=== PATIENT | female | born 1980 | race Caucasian/White ===

== ENCOUNTER → 2020-04-01 14:41 | Outpatient (BNVA) | payer MEDICARE, SELFPAY | PROVIDERS: Visit Provider Psychiatry & Neurology Psychiatry | DX: F33.1 Major depressive disorder, recurrent, moderate (principal); F60.3 Borderline personality disorder; F79 Unspecified intellectual disabilities | CPT/HCPCS: 99204 ==

== ENCOUNTER → 2020-05-03 08:59 | Outpatient (BNVA) | payer MEDICARE, SELFPAY | PROVIDERS: Visit Provider Psychiatry & Neurology Psychiatry | DX: F33.1 Major depressive disorder, recurrent, moderate (principal); F79 Unspecified intellectual disabilities; F60.3 Borderline personality disorder | CPT/HCPCS: 99213 ==

== ENCOUNTER → 2020-07-26 09:10 | Outpatient (BNVA) | payer MEDICARE, SELFPAY | PROVIDERS: Visit Provider Psychiatry & Neurology Psychiatry | DX: F33.1 Major depressive disorder, recurrent, moderate (principal); F79 Unspecified intellectual disabilities; F60.3 Borderline personality disorder | CPT/HCPCS: 99213 ==

== ENCOUNTER → 2020-08-22 09:23 | Outpatient (BNVA) | payer MEDICARE, SELFPAY | PROVIDERS: Visit Provider Family Medicine | DX: Z13.6 Encounter for screening for cardiovascular disorders (principal); L30.4 Erythema intertrigo; E66.01 Morbid (severe) obesity due to excess calories; E03.9 Hypothyroidism, unspecified; K43.0 Incisional hernia with obstruction, without gangrene | CPT/HCPCS: 85025 ==

== ENCOUNTER 2020-08-29 07:55 | Outpatient (CLI) | payer MEDICARE, SELFPAY ==
[2020-08-29 07:13] LABS: Basophils % 0.5 %; Eosinophils # 0.1 10^3/uL (0.0-0.8); Hematocrit 45.6 % (37.0-47.0); Hemoglobin 14.8 g/dL (11.5-15.3); Lymphocytes # 1.9 10^3/uL (0.8-4.8); Lymphocytes % 30.9 %; Mean Corpuscular HGB Conc 32.5 g/dL (30.0-36.0); Mean Corpuscular Hemoglobin 29.3 pg (28.0-34.0); Mean Corpuscular Volume 90.3 fL (81-99); Mean Platelet Volume 9.8 fL (7.4-10.4); Monocytes # 0.5 10^3/uL (0.2-0.9); Monocytes % 8.8 %; Neutrophils # 3.53 10^3/uL (1.8-7.7); Neutrophils % 57.5 %; Nucleated Red Blood Cells % 0 %; Platelet Count 285 10^3/cmm (130-400); Red Blood Count 5.05 10^6/uL (4.1-5.3); Red Cell Distribution Width 12.2 % (12.1-15.1); White Blood Count 6.1 10^3/uL (4.0-10.0)
[2020-08-29 07:33] LABS: Alanine Aminotransferase 12 U/L (0-33); Albumin Level 4.2 g/dL (3.5-5.2); Alkaline Phosphatase 63 IU/L (35-105); Anion Gap 13.3 (5-19); Aspartate Amino Transferase 11 U/L (0-32); Blood Urea Nitrogen 9 mg/dL (6-20); Calcium 8.6 mg/dL (8.5-10.5); Carbon Dioxide 26 mmol/L (22-29); Chloride 102 mmol/L (98-107); Chol HDL Ratio 3.57 mg/dL (0.0-4.40); Cholesterol 200 mg/dL (0-200); Free T4 Free Thyroxine 1.19 ng/dL (0.82-1.77); Globulin 2.8 g/dL (1.3-4.6); Glomerular Filtration Rate 247.7 mL/min (90-130); Glucose 99 mg/dL (65-115); HDL Cholesterol 56 mg/dL (60-100); LDL Cholesterol Calculated 128 mg/dL (50-129); LDL HDL Ratio 2.29 RATIO (0.00-3.22); Osmolality Calculated 283 mOsm/kg (285-295); Potassium 4.3 mmol/L (3.5-5.1); Sodium 137 mmol/L (136-145); Thyroid Stimulating Hormone 3.41 uIU/mL (0.27-4.20); Total Bilirubin 0.3 mg/dL (0.15-1.2); Triglycerides 81 mg/dL (0-150)
[2020-08-29 08:20] LABS: 25 Hydroxy Vitamin D 26 ng/mL (30-100)
== END 2020-08-29 07:56 | disposition home or self-care (01) ==
LOC: LAB 09-10 07:55
PROVIDERS: Visit Provider Family Medicine
DX: Z13.6 Encounter for screening for cardiovascular disorders (principal); E66.01 Morbid (severe) obesity due to excess calories; E03.9 Hypothyroidism, unspecified; Z68.42 Body mass index [BMI] 45.0-49.9, adult
CPT/HCPCS: 36415; 80053; 80061; 82306; 84439; 84443; 85025

== ENCOUNTER → 2020-09-18 13:46 | Outpatient (BNVA) | payer MEDICARE, SELFPAY | PROVIDERS: Visit Provider Obstetrics & Gynecology | DX: Z12.4 Encounter for screening for malignant neoplasm of cervix (principal) | CPT/HCPCS: 88175 ==

== ENCOUNTER → 2020-09-25 15:04 | Outpatient (BNVA) | payer MEDICARE, SELFPAY | PROVIDERS: Visit Provider Obstetrics & Gynecology | DX: Z01.419 Encounter for gynecological examination (general) (routine) without abnormal findings (principal) | CPT/HCPCS: 76830 ==

== ENCOUNTER → 2020-10-18 12:30 | Outpatient (BNVA) | payer MEDICARE, SELFPAY | PROVIDERS: Visit Provider Psychiatry & Neurology Psychiatry | DX: F33.1 Major depressive disorder, recurrent, moderate (principal); F79 Unspecified intellectual disabilities; F60.3 Borderline personality disorder | CPT/HCPCS: 99213 ==

== ENCOUNTER 2021-01-03 14:34 | Emergency (ER) | payer MEDICARE, SELFPAY ==
[2021-01-03 15:24] VITALS: BP 134/98; PULSE 66; RESP 17; TEMP 37.2; O2SAT 100
--- NOTE | 2021-01-03 15:47 | ED_ITS ---
HPI - Extremity Problem General: Chief complaint: Extremity Injury, Upper Stated complaint: LEFT HAND INJURY Time Seen by Provider: 01/03/21 15:47 History of Present Illness: HPI Narrative: Ms. Rosa is a 40-year-old lady with significant past medical history of Arthrogryposis multiplex congenita who presents to the emergency department due to laceration. She was using a razor blade to help remove caulking from a tub when it slipped and cut her left hand o n the anatomic medial aspect. There was immediately venous bleeding but no pulsatile arterial bleeding. She immediately had pain. She scrubbed the area and cleaned it with hydrogen peroxide and upon arrival the wound is largely hemostatic. The patient expresses concern that her fingers have changed color and she has mild tingling. Otherwise she has been at baseline health. Pain is mild to moderate and stinging/throbbing in nature. Her symptoms are mildly worse with palpation but do not go with rest. No other specific exacerbating or alleviating factors identified. Review of Systems General: Reports: 10 or more systems reviewed and unremarkable except in HPI and below Narrative: CONSTITUTIONAL: denies fever, fatigue, weakness EYES - denies pain, denies loss of vision EARS - denies ear issues. NOSE - denies congestion or rhinorrhea. THROAT - denies sore throat or difficulty swallowing. CARDIOVASCULAR - denies chest pain and palpitations RESPIRATORY - denies shortness of breath and cough GASTROINTESTINAL - denies abdominal pain, no nausea vomiting, no changes in bowel habits GENITOURINARY - denies dysuria or urinary frequency MUSCULOSKELETAL- denies deformity or pain SKIN -laceration and other reported findings as noted in HPI. NEUROLOGIC - denies focal weakness or sensory changes HEMATOLOGIC/LYMPHATIC - denies easy bruising or lymphadenopathy. [facility] ED PFSH: Medical History Arthrogryposis multiplex congenita Bipolar disorder Recent surgical procedure on lower extremity Surgical History History of cholecystectomy 2015 Family History Other Diabetes Hypertension Psychiatric illness Thyroid condition Social History Smoking and tobacco status: never smoked Second hand smoke exposure: No Alcohol intake: never Current gender identity: Female Physical Exam Narrative: EXAM NARRATIVE: GENERAL/CONSTITUTIONAL - well-appearing. No acute distress. Eyes - PERRL, no conjunctival injection ENMT - Atraumatic external nose and ears. Moist mucous membranes NECK - supple. trachea midline CARDIOVASCULAR - regular rate and rhythm. Left radial and ulnar artery palpable, 2+. RESPIRATORY -clear to auscultation bilaterally. No retractions or accessory muscle use. ABDOMEN/GI - Nontender/Nondistended. No tenderness to percussion or evidence of peritonitis MSK - Extremities without obvious deformity or tenderness to palpation Left hand? laceration to medial left hand with bleeding controlled. fingers are discolored however palmar surface has good color. SKIN - Warm, Dry NEURO - alert and appropriately oriented. Sensation intact. Moves all extremities equally. PSYCH - Appropriate mood and affect Procedures Laceration Laceration 1: Site: hand Side (If applicable): left Size (cm): 4 Description: linear Depth: simple, single layer Skin layer closed with: other (glue) Course ED course: - Patient was seen and evaluated by me at bedside -Vital signs obtained - Initial evaluation notable for clean appearing lacerations as noted, there is discoloration and delayed cap refill of all 5 fingers. This presentation is atypical and that no significant arterial injury is present and given anatomic l ocation no nerve injury would explain these findings. CMS is otherwise intact. -Laceration repaired with glue - Upon serial reexamination after treatment the patient was similar - Based on patient history, evaluation, labs, and imaging as interpreted the most likely cause of the patient's condition is laceration with vasospastic event - The results of ED evaluation were discussed with the patient including prescriptions and/or symptomatic cares including appropriate and responsible use, followup plan, and return precautions. The patient verbalized understanding and felt safe for discharge. - Patient discharged in satisfactory condition. Vital Signs: Vital signs: Vital Signs Temperature 98.9 F 01/03/21 16:33 Pulse Rate 87 01/03/21 16:33 Respiratory Rate 17 01/03/21 16:33 Blood Pressure 134/98 01/03/21 15:24 Pulse Oximetry 100 01/03/21 16:33 MDM - Extremity (Nontraumatic) Medical Records: Attestation: I reviewed the patient's medical records. Lab Data: Attestation: I reviewed the patient's lab results. Discharge Plan Discharge Patient Disposition: Home Clinical Impression: Laceration, Change of skin color Condition: Stable Prescriptions: No Action kelp-vitamin A Capsule PO DAILY RF: 0 nystatin 100,000 unit/gram cream 1 applic topical BID Qty: 30 RF: 2 duloxetine [Cymbalta] 30 mg capsule,delayed release(DR/EC) 30 mg PO DAILY Qty: 30 RF: 2 cholecalciferol (vitamin D3) 1,250 mcg (50,000 unit) capsule See Rx Instructions .ROUTE .COMPLEX Qty: 12 RF: 0 Discharge Orders: Discharge ED (Routine); Ordered 01/03/21 Ordered By: Tyrell Yanez Referrals: Liz Hall DO [Primary Care Provider] - Discharge Diet: Usual diet Discharge Activity: Resume usual activity Patient Instructions: Laceration (ED), Skin Adhesive Care (ED) Activity Restrictions/Additional Instructions: Thank you for visiting the emergency department. He was seen and evaluated for laceration skin color change. The laceration was repaired/secured with glue. The exact cause of your color change in your fingers is somewhat unclear though does not likely need intervention at this time. Please follow-up with your primary care provider. Please return to the emergency department for signs of infection, pain [id number], or anything that you are concerned about and feel needs emergency department evaluation. Coding Level of Care Code ED Shoe [employer]er for Michelle Jane
[2021-01-03 16:33] VITALS: PULSE 87; RESP 17; TEMP 37.2; O2SAT 100
== END 2021-01-03 16:33 | disposition home or self-care (01) ==
PROVIDERS: Emergency Provider Emergency Medicine; PCP Family Medicine
DX: S61.412A Laceration without foreign body of left hand, initial encounter (principal); R23.8 Other skin changes; W26.8XXA Contact with other sharp object(s), not elsewhere classified, initial encounter
CPT/HCPCS: 12002; 99281

== ENCOUNTER → 2021-01-10 09:40 | Outpatient (BNVA) | payer MEDICARE, SELFPAY | PROVIDERS: Visit Provider Psychiatry & Neurology Psychiatry | DX: F33.1 Major depressive disorder, recurrent, moderate (principal); F79 Unspecified intellectual disabilities; F60.3 Borderline personality disorder | CPT/HCPCS: 99213 ==

== ENCOUNTER → 2021-04-04 12:34 | Outpatient (BNVA) | payer MEDICARE, SELFPAY | PROVIDERS: Visit Provider Psychiatry & Neurology Psychiatry | DX: F33.1 Major depressive disorder, recurrent, moderate (principal); F79 Unspecified intellectual disabilities; F60.3 Borderline personality disorder | CPT/HCPCS: 99213 ==

== ENCOUNTER 2021-05-06 06:00 | Outpatient (RCR) | payer MEDICARE, SELFPAY | END 2021-05-16 23:59 | disposition home or self-care (01) | LOC: SPT 06:00 | PROVIDERS: Visit Provider Podiatrist Foot & Ankle Surgery | DX: Q74.3 Arthrogryposis multiplex congenita (principal) | CPT/HCPCS: 97161 ==

== ENCOUNTER 2021-05-17 06:00 | Outpatient (RCR) | payer MEDICARE, SELFPAY | END 2021-06-16 23:59 | disposition home or self-care (01) | LOC: SPT 06:00 | PROVIDERS: Visit Provider Podiatrist Foot & Ankle Surgery | DX: Q74.3 Arthrogryposis multiplex congenita (principal) | CPT/HCPCS: 97110; 97116 ==

== ENCOUNTER 2021-06-17 06:00 | Outpatient (RCR) | payer MEDICARE, SELFPAY | END 2021-07-14 23:59 | disposition home or self-care (01) | LOC: SPT 06:00 | PROVIDERS: Visit Provider Podiatrist Foot & Ankle Surgery | DX: Q68.8 Other specified congenital musculoskeletal deformities (principal) | CPT/HCPCS: 97110 ==

== ENCOUNTER → 2021-07-01 12:48 | Outpatient (BNVA) | payer MEDICARE, SELFPAY | PROVIDERS: Visit Provider Psychiatry & Neurology Psychiatry | DX: F33.1 Major depressive disorder, recurrent, moderate (principal); F79 Unspecified intellectual disabilities; F60.3 Borderline personality disorder | CPT/HCPCS: 99213 ==

== ENCOUNTER 2021-07-15 06:00 | Outpatient (RCR) | payer MEDICARE, SELFPAY | END 2021-08-14 23:59 | disposition home or self-care (01) | LOC: SPT 06:00 | PROVIDERS: Visit Provider Podiatrist Foot & Ankle Surgery | DX: Q74.3 Arthrogryposis multiplex congenita (principal) | CPT/HCPCS: 97110; 97116 ==

== ENCOUNTER 2021-08-15 06:00 | Outpatient (RCR) | payer MEDICARE, SELFPAY | END 2021-09-12 15:24 | disposition home or self-care (01) | LOC: SPT 06:00 | PROVIDERS: Visit Provider Podiatrist Foot & Ankle Surgery | DX: Q74.3 Arthrogryposis multiplex congenita (principal); M62.81 Muscle weakness (generalized); R26.89 Other abnormalities of gait and mobility | CPT/HCPCS: 97110 ==

== ENCOUNTER → 2021-09-25 12:36 | Outpatient (BNVA) | payer MEDICARE, SELFPAY | PROVIDERS: Visit Provider Psychiatry & Neurology Psychiatry | DX: F79 Unspecified intellectual disabilities (principal); F60.3 Borderline personality disorder; F33.1 Major depressive disorder, recurrent, moderate | CPT/HCPCS: 99213 ==

== ENCOUNTER → 2022-10-23 09:43 | Outpatient (BNVA) | payer MEDICARE, MEDICAID, SELFPAY | PROVIDERS: PCP Family Medicine; Visit Provider Family Medicine | DX: F33.1 Major depressive disorder, recurrent, moderate (principal); Z13.6 Encounter for screening for cardiovascular disorders; Z01.419 Encounter for gynecological examination (general) (routine) without abnormal findings | CPT/HCPCS: 80053; 80061; 84443; 85025; 87624 ==

== ENCOUNTER 2022-11-04 15:03 | Outpatient (CLI) | payer MEDICARE, MEDICAID, SELFPAY ==
--- NOTE | 2022-11-04 15:08 | MM_ITS ---
WS: [id number] BILATERAL 3D TOMOSYNTHESIS DIGITAL SCREENING MAMMOGRAPHY WITH CAD CLINICAL INFORMATION: screening mammogram HISTORY: Screening mammogram. No current complaints. COMPARISON: Baseline TECHNIQUE: Bilateral CC and MLO views. FINDINGS: Scattered fibroglandular densities bilaterally. No suspicious focal mass, asymmetry, calcifications, or architectural distortion. No evidence of malignancy. A few tiny incidental punctate calcifications . MM/[place] [id number] IMPRESSION: BI-RADS: 2-Benign FOLLOW UP: 1 Year Follow-up Recommend return to annual screening mammography.
== END 2022-11-04 15:04 | disposition home or self-care (01) ==
PROVIDERS: PCP Family Medicine; Visit Provider Family Medicine
DX: Z12.31 Encounter for screening mammogram for malignant neoplasm of breast (principal)
CPT/HCPCS: 77063; 77067

== ENCOUNTER 2023-01-06 20:00 | Outpatient (CLI) | payer MEDICARE, MEDICAID, SELFPAY | END 2023-01-06 20:01 | disposition home or self-care (01) | PROVIDERS: PCP Family Medicine; Visit Provider Family Medicine | DX: R53.83 Other fatigue (principal); R06.83 Snoring; D75.1 Secondary polycythemia | CPT/HCPCS: 95810 ==

== ENCOUNTER 2023-02-05 23:55 | Emergency (ER) | payer MEDICARE, SELFPAY ==
[2023-02-06] VITALS: BP 135/92; PULSE 82; RESP 16; TEMP 36.7; O2SAT 98; BMI 44.8
--- NOTE | 2023-02-06 00:07 | CTR_ITS ---
PROCEDURE INFORMATION: Exam: CT Head Without Contrast Exam date and time: 02/06/2023 1:16 AM Age: 42 years old Clinical indication: Injury or trauma; Fall; Blunt trauma (contusions or hematomas); Patient HX: Patient fell at home in bathroom striking occipital on floor. ; Additional info: Fall head injury TECHNIQUE: Imaging protocol: Computed tomography of the head without contrast. Radiation optimization: All CT scans at this facility use at least one of these dose optimization techniques: automated exposure control; mA and/or kV adjustment per patient size (includes targeted exams where dose is matched to clinical indication); or iterative reconstruction. REPORTING DATA: Count of CT and Cardiac NM exams in prior 12 months: This patient has received 0 known CTs and 0 known cardiac nuclear medicine studies in the 12 months prior to the current study. COMPARISON: No relevant prior studies available. RADIATION DOSE METRICS: Total DLP (mGy-cm): 1091.58 FINDINGS: Brain: Normal. No hemorrhage. Unremarkable white matter. No mass effect. Cerebral ventricles: No ventriculomegaly. Paranasal sinuses: Visualized sinuses are unremarkable. No fluid levels. Mastoid air cells: Visualized mastoid air cells are well aerated. Bones/joints: Unremarkable. No acute fracture. Soft tissues: Unremarkable. CT/CT head wo con* [id number] IMPRESSION: No acute intracranial abnormality.
--- NOTE | 2023-02-06 00:14 | ED_ITS ---
Documented by User: REID Salazar 02/08/23 17:30 HPI - Fall General: Chief Complaint: Fall Stated Complaint: Fell hit head Time Seen by Provider: 02/06/23 00:07 History of Present Illness: 42-year-old female comes in today for complaints of fall injury. Patient tripped and fell earlier in the evening hitting the back of her head against the toilet. Patient went and laid down for a while but when she woke up her caregiver reports that she seems to be slow in her speech which is not normal for her. Patient does have a history of borderline personality disorder and major depressive disorder. Patient appears nontoxic. Patient appears in no pain. Patient reports some occipital tenderness of the scalp. Patient has chronic medical history of Arthrogryposis multiplex congenita. Associated symptoms-after fall: Reports headache(s) Review of Systems General: Reports: 10 or more systems reviewed and unremarkable except in HPI and below Neuro: Reports: headache(s) PFSH ED PFSH: Medical History Arthrogryposis multiplex congenita Bipolar disorder Psychiatric care Recent surgical procedure on lower extremity Surgical History History of cholecystectomy 2015 Family History Other Diabetes Hypertension Psychiatric illness Thyroid condition Social History Smoking and tobacco status: never smoked Second hand smoke exposure: No Smoking risk assessment/counseling performed?: No Alcohol intake: never Desire information about alcohol rehabilitation?: No Counseling given: No Substance/Drug Use: never Desire information about substance/drug rehabilitation?: No Counseling given: No Current gender identity: Female Physical Exam Const: COMMON NORMALS: alert HENMT: COMMON NORMALS: atraumatic HEAD & SCALP: atraumatic Neck/C-Spine: CERVICAL SPINE: No Cervical spine tenderness and Yes Paracervical muscle tenderness Chest: COMMONS NORMALS: normal inspection of the chest Resp: COMMON NORMALS: normal respiratory effort and clear to auscultation bilaterally AUSCULTATION: clear to auscultation bilaterally Cardio: COMMON NORMALS: regular rate and regular rhythm RATE: regular rate RHYTHM: regular rhythm GI: COMMON NORMALS: non-tender Back/Pelvis: COMMON NORMALS: thoracic and lumbar spine normal to inspection Extremity: NARRATIVE EXTREMITY EXAM: Bilateral lower extremity swelling Neuro: SENSORIUM/ORIENTATION: Yes alert Skin: COMMON NORMALS: turgor normal GENERAL SKIN EXAM: turgor normal Course Vital Signs: Vital signs: Vital Signs Temperature 98.0 F 02/06/23 00:00 Pulse Rate 71 02/06/23 02:29 Respiratory Rate 18 02/06/23 02:29 Blood Pressure 136/84 02/06/23 02:29 Pulse Oximetry 94 02/06/23 02:29 Oxygen Delivery Me thod Room Air 02/06/23 02:28 MDM - Fall Medical Decision Making Patient comes in for evaluation of head injury. Patient had tripped over a mop in her bathroom causing her to fall and hit the back of her head against the toilet. Patient denies any loss of consciousness. Patient had taken a nap and her caregiver noted that she was slow to respond with speech and reported some numbness in her extremities. Patient appears nontoxic. Patient appears alert and responds appropriate to questions. Differential diagnosis includes not limited to concussion syndrome, intracranial bleeding, malingering, exacerbation of mental health disorder. Lab Data 02/06/23 00:30 02/06/23 00:[address] 02/06/23 00:07 IMPRESSION: No acute intracranial abnormality. Laboratory Results WBC 7.71 10^3/uL (3.29-11.43) 02/06/23 00:30 RBC 4.93 10^6/uL (3.85-5.65) 02/06/23 00:30 Hgb 14.70 g/dL (11.27-16.99) 02/06/23 00:30 Hct 44.2 % (36-47) 02/06/23 00:30 MCV 89.7 fl (85-98) 02/06/23 00:30 MCH 29.8 pg (27-33) 02/06/23 00:30 MCHC 33.3 g/dL (30-55) 02/06/23 00:30 RDW 12.2 % (12.1-15.1) 02/06/23 00:30 Plt Count 312 10^3/cmm (157-399) 02/06/23 00:30 MPV 9.9 fL (7.4-10.4) 02/06/23 00:30 Neut % (Auto) 47.0 % 02/06/23 00:30 Lymph % (Auto) 38.4 % 02/06/23 00:30 Bland % (Auto) 11.8 % 02/06/23 00:30 Eos % (Auto) 1.9 % 02/06/23 00:30 Baso % (Auto) 0.5 % 02/06/23 00:30 Neut # (Auto) 3.62 10^3/uL (1.8-7.7) 02/06/23 00:30 Lymph # (Auto) 3.0 10^3/uL (0.8-4.8) 02/06/23 00:30 Bland # (Auto) 0.9 10^3/uL (0.2-0.9) 02/06/23 00:30 Eos # (Auto) 0.2 10^3/uL (0.0-0.8) 02/06/23 00:30 Baso # (Auto) 0.0 10^3/uL (0.0-0.1) 02/06/23 00:30 Nucleated RBC % (auto) 0 % 02/06/23 00:30 Nucleated RBCs # 0.0 /100WBC 02/06/23 00:30 Sodium 136 mmol/L (136-145) 02/06/23 00:30 Potassium 3.6 mmol/L (3.5-5.1) 02/06/23 00:30 Chloride 101 mmol/L (98-107) 02/06/23 00:30 Carbon Dioxide 27 mmol/L (22-29) 02/06/23 00:30 Anion Gap 11.6 (5-19) 02/06/23 00:30 BUN 13 mg/dL (6-20) 02/06/23 00:30 Creatinine 0.4 mg/dL (0.5-0.9) L 02/06/23 00:30 GFR Calculation 175.9 mL/min (90-130) H 02/06/23 00:30 Glucose 140 mg/dL (65-115) H 02/06/23 00:30 Calculated Osmolality 284 mOsm/kg (285-295) L 02/06/23 00:30 Calcium 8.9 mg/dL (8.5-10.5) 02/06/23 00:30 Total Bilirubin 0.2 mg/dL (0.15-1.2) 02/06/23 00:30 AST 12 U/L (0-32) 02/06/23 00:30 ALT 21 U/L (0-33) 02/06/23 00:30 Alkaline Phosphatase 66 U/L (35-105) 02/06/23 00:30 Total Protein 6.8 g/dL (6.6-8.7) 02/06/23 00:30 Albumin 4.1 g/dL (3.5-5.2) 02/06/23 00:30 Globulin 2.7 g/dL (1.3-4.6) 02/06/23 00:30 Discharge Plan Discharge Patient Disposition: Home Clinical Impression: Concussion without loss of consciousness, Contusion of scalp Condition: Stable Prescriptions: No Action (DME) AFO to Left and Right See Rx Instructions .Route .MEDSUPPLY Qty: 1 0RF Rx Instructions: As directed by [facility] (DME) articulating AFO right ankle See Rx Instructions .Route .MEDSUPPLY Qty: 1 0RF Rx Instructions: As directed ibuprofen 200 mg capsule 600 mg PO Q6H PRN (Reason: fever or pain) multivitamin Tablet 1 tab PO QAM duloxetine 60 mg capsule,delayed release(DR/EC) 60 mg PO DAILY Qty: 90 0RF Discharge Orders: Discharge ED (Routine); Ordered 02/06/23 Ordered By: Gelacio Torres Referrals: Liz Hall DO [Primary Care Provider] - 1-3 days Patient Instructions: Scalp Contusion in Adults (ED), Opioid Safety, Pain Management Activity Restrictions/Additional Instructions: Return for worsening headache despite treatment, vomiting, worsening mental status, any other concerning symptoms. Coding Level of Care Code ED [employer] for [employer]g [employer] Documented by User: Gelacio Torres DO 02/06/23 02:54 HPI - Fall 2 General: Chief Complaint: Fall Stated Complaint: Fell hit head Time Seen by Provider: 02/06/23 00:07 [facility] ED PFSH: Medical History Arthrogryposis multiplex congenita Bipolar disorder Psychiatric care Recent surgical procedure on lower extremity Surgical History History of cholecystectomy 2015 Family History Other Diabetes Hypertension Psychiatric illness Thyroid condition Social History Smoking and tobacco status: never smoked Second hand smoke exposure: No Smoking risk assessment/counseling performed?: No Alcohol intake: never Desire information about alcohol rehabilitation?: No Counseling given: No Substance/Drug Use: never Desire information about substance/drug rehabilitation?: No Counseling given: No Current gender identity: Female Course Vital Signs: Vital signs: Vital Signs Temperature 98.0 F 02/06/23 00:00 Pulse Rate 71 02/06/23 02:29 Respiratory Rate 18 02/06/23 02:29 Blood Pressure 136/84 02/06/23 02:29 Pulse Oximetry 94 02/06/23 02:29 Oxygen Delivery Me thod Room Air 02/06/23 02:28 MDM - Fall Medical Decision Making Patient comes in for evaluation of head injury. Patient had tripped over a mop in her bathroom causing her to fall and hit the back of her head against the toilet. Patient denies any loss of consciousness. Patient had taken a nap and her caregiver noted that she was slow to respond with speech and reported some numbness in her extremities. Patient appears nontoxic. Patient appears alert and responds appropriate to questions. Differential diagnosis includes not limited to concussion syndrome, intracranial bleeding, malingering, exacerbation of mental health disorder. This patient was originally seen by REID Ya.? I agree with his history, evaluation, and treatment. Head CT is read as no acute abnormality. Laboratory findings are not remarkable. Patient is improving after pain medication here. She will be allowed home. Close outpatient follow-up. Lab Data 02/06/23 00:30 02/06/23 00:[address] 02/06/23 00:07 IMPRESSION: No acute intracranial abnormality. Laboratory Results WBC 7.71 10^3/uL (3.29-11.43) 02/06/23 00:30 RBC 4.93 10^6/uL (3.85-5.65) 02/06/23 00:30 Hgb 14.70 g/dL (11.27-16.99) 02/06/23 00:30 Hct 44.2 % (36-47) 02/06/23 00:30 MCV 89.7 fl (85-98) 02/06/23 00:30 MCH 29.8 pg (27-33) 02/06/23 00:30 MCHC 33.3 g/dL (30-55) 02/06/23 00:30 RDW 12.2 % (12.1-15.1) 02/06/23 00:30 Plt Count 312 10^3/cmm (157-399) 02/06/23 00:30 MPV 9.9 fL (7.4-10.4) 02/06/23 00:30 Neut % (Auto) 47.0 % 02/06/23 00:30 Lymph % (Auto) 38.4 % 02/06/23 00:30 Bland % (Auto) 11.8 % 02/06/23 00:30 Eos % (Auto) 1.9 % 02/06/23 00:30 Baso % (Auto) 0.5 % 02/06/23 00:30 Neut # (Auto) 3.62 10^3/uL (1.8-7.7) 02/06/23 00:30 Lymph # (Auto) 3.0 10^3/uL (0.8-4.8) 02/06/23 00:30 Bland # (Auto) 0.9 10^3/uL (0.2-0.9) 02/06/23 00:30 Eos # (Auto) 0.2 10^3/uL (0.0-0.8) 02/06/23 00:30 Baso # (Auto) 0.0 10^3/uL (0.0-0.1) 02/06/23 00:30 Nucleated RBC % (auto) 0 % 02/06/23 00:30 Nucleated RBCs # 0.0 /100WBC 02/06/23 00:30 Sodium 136 mmol/L (136-145) 02/06/23 00:30 Potassium 3.6 mmol/L (3.5-5.1) 02/06/23 00:30 Chloride 101 mmol/L (98-107) 02/06/23 00:30 Carbon Dioxide 27 mmol/L (22-29) 02/06/23 00:30 Anion Gap 11.6 (5-19) 02/06/23 00:30 BUN 13 mg/dL (6-20) 02/06/23 00:30 Creatinine 0.4 mg/dL (0.5-0.9) L 02/06/23 00:30 GFR Calculation 175.9 mL/min (90-130) H 02/06/23 00:30 Glucose 140 mg/dL (65-115) H 02/06/23 00:30 Calculated Osmolality 284 mOsm/kg (285-295) L 02/06/23 00:30 Calcium 8.9 mg/dL (8.5-10.5) 02/06/23 00:30 Total Bilirubin 0.2 mg/dL (0.15-1.2) 02/06/23 00:30 AST 12 U/L (0-32) 02/06/23 00:30 ALT 21 U/L (0-33) 02/06/23 00:30 Alkaline Phosphatase 66 U/L (35-105) 02/06/23 00:30 Total Protein 6.8 g/dL (6.6-8.7) 02/06/23 00:30 Albumin 4.1 g/dL (3.5-5.2) 02/06/23 00:30 Globulin 2.7 g/dL (1.3-4.6) 02/06/23 00:30 All radiology interpretation(s) finalized by discharge Discharge Plan Discharge Patient Disposition: Home Clinical Impression: Concussion without loss of consciousness, Contusion of scalp Condition: Stable Prescriptions: No Action (DME) AFO to Left and Right See Rx Instructions .Route .MEDSUPPLY Qty: 1 0RF Rx Instructions: As directed by [facility] (DME) articulating AFO right ankle See Rx Instructions .Route .MEDSUPPLY Qty: 1 0RF Rx Instructions: As directed ibuprofen 200 mg capsule 600 mg PO Q6H PRN (Reason: fever or pain) multivitamin Tablet 1 tab PO QAM duloxetine 60 mg capsule,delayed release(DR/EC) 60 mg PO DAILY Qty: 90 0RF Discharge Orders: Discharge ED (Routine); Ordered 02/06/23 Ordered By: Gelacio Torres Referrals: Liz Hall DO [Primary Care Provider] - 1-3 days Patient Instructions: Scalp Contusion in Adults (ED), Opioid Safety, Pain Management Activity Restrictions/Additional Instructions: Return for worsening headache despite treatment, vomiting, worsening mental status, any other concerning symptoms. Coding Level of Care Code ED [employer] for Michelle Jane
[2023-02-06 00:42] LABS: Basophils % 0.5 %; Eosinophils # 0.2 10^3/uL (0.0-0.8); Eosinophils % 1.9 %; Hematocrit 44.2 % (36-47); Lymphocytes % 38.4 %; Mean Corpuscular HGB Conc 33.3 g/dL (30-55); Mean Corpuscular Hemoglobin 29.8 pg (27-33); Mean Corpuscular Volume 89.7 fl (85-98); Mean Platelet Volume 9.9 fL (7.4-10.4); Monocytes # 0.9 10^3/uL (0.2-0.9); Monocytes % 11.8 %; Neutrophils # 3.62 10^3/uL (1.8-7.7); Nucleated Red Blood Cells % 0 %; Platelet Count 312 10^3/cmm (157-399); Red Blood Count 4.93 10^6/uL (3.85-5.65); Red Cell Distribution Width 12.2 % (12.1-15.1); White Blood Count 7.71 10^3/uL (3.29-11.43)
[2023-02-06 01:04] LABS: Alanine Aminotransferase 21 U/L (0-33); Albumin Level 4.1 g/dL (3.5-5.2); Alkaline Phosphatase 66 U/L (35-105); Anion Gap 11.6 (5-19); Aspartate Amino Transferase 12 U/L (0-32); Blood Urea Nitrogen 13 mg/dL (6-20); Calcium 8.9 mg/dL (8.5-10.5); Carbon Dioxide 27 mmol/L (22-29); Chloride 101 mmol/L (98-107); Globulin 2.7 g/dL (1.3-4.6); Glomerular Filtration Rate 175.9 mL/min (90-130); Glucose 140 mg/dL (65-115); Osmolality Calculated 284 mOsm/kg (285-295); Potassium 3.6 mmol/L (3.5-5.1); Sodium 136 mmol/L (136-145); Total Bilirubin 0.2 mg/dL (0.15-1.2); Total Protein 6.8 g/dL (6.6-8.7)
[2023-02-06 01:12] VITALS: RESP 18
[2023-02-06] MEDS: oxyCODONE-APAP 5-325 mg Tablet 1 TAB PO (01:12)
[2023-02-06 02:28] VITALS: BP 136/84; RESP 18; O2SAT 94
[2023-02-06 02:29] VITALS: BP 136/84; PULSE 71; RESP 18; O2SAT 94
== END 2023-02-06 02:31 | disposition home or self-care (01) ==
PROVIDERS: Nurse Practitioner Family; Emergency Provider Emergency Medicine; PCP Family Medicine
DX: S06.0X0A Concussion without loss of consciousness, initial encounter (principal); S00.03XA Contusion of scalp, initial encounter; W01.198A Fall on same level from slipping, tripping and stumbling with subsequent striking against other object, initial encounter
CPT/HCPCS: 36415; 70450; 80053; 85025; 99284

== ENCOUNTER 2023-09-22 07:56 | Outpatient (CLI) | payer MEDICARE, SELFPAY ==
[2023-09-22] MEDS: iohexol 350 mg/mL 500 mL Btl (per mL) PO (08:34)
--- NOTE | 2023-09-22 09:00 | CT_ITS ---
WS: [id number] CT CHEST AND ABDOMEN WITH CONTRAST HISTORY: abd hernia TECHNIQUE: Axial imaging is performed through the chest and abdomen with IV and oral contrast.. Sagit ondina and coronal reformats. All CT scans at [facility] use at least one of these dose optimiza tion techniques: automated exposure control; mA and/or kV adjustment per patient size (includes targe mikaela exams where dose is matched to clinical indication); or iterative reconstruction. CONTRAST: Omnipaque 350; 100 mL IV. DLP: 988.92 mGy.cm COMPARISON: None available. Chest CT: The lungs are clear and well aerated. No mass or pulmonary nodule. No pneumonia. Normal size heart, a sandro and pulmonary artery. No mediastinal or hilar adenopathy. Moderate-sized hiatal hernia. Abdomen CT: Normal size liver with hepatic steatosis. Normal portal vein. No mass. Prior cholecystectomy. Normal spleen. Normal pancreas and adrenal glands. Normal kidneys. Normal aorta. No ascites or adenopathy. Visualized GI tract of the abdomen is negative. There are a few diverticula just distal to the splenic flexure. Very tiny defect within the abdominal wall at the umbilicus. Additional supraumbilical fat-containing hernia measures 2.[address]/CT chest abd w con*[id number] IMPRESSION: 1. No pulmonary mass or pneumonia. 2. No mediastinal or hilar adenopathy. 3. Moderate hiatal hernia. 4. Prior cholecystectomy. 5. Supraumbilical fat-containing hernia, orifice 2.2 cm. 6. Very tiny umbilical hernia containing fat only.
[2023-09-22] MEDS: iohexol 350 mg/mL 500 mL Btl (per mL) IV (09:27)
== END 2023-09-22 07:57 | disposition home or self-care (01) ==
LOC: RAD 07:57
PROVIDERS: PCP Family Medicine; Visit Provider Family Medicine
DX: K43.0 Incisional hernia with obstruction, without gangrene (principal); K44.9 Diaphragmatic hernia without obstruction or gangrene; K42.9 Umbilical hernia without obstruction or gangrene
CPT/HCPCS: 71260; 74160; Q9967

== ENCOUNTER 2024-08-01 09:53 | Outpatient (CLI) | payer MEDICARE, SELFPAY ==
--- NOTE | 2024-08-01 10:40 | MM_ITS ---
WS: [id number] BILATERAL 3D TOMOSYNTHESIS DIGITAL SCREENING MAMMOGRAPHY WITH CAD CLINICAL INFORMATION: screening HISTORY: Screening mammogram. No current complaints. COMPARISON: 2022 TECHNIQUE: Bilateral CC and MLO views. FINDINGS: Scattered fibroglandular densities bilaterally. No suspicious focal mass, asymmetry, calcifications, or architectural distortion. No evidence of malignancy. A few tiny incidental punctate and skin calcifications. MM/MM scr tomosynthesis [id number] IMPRESSION: DENSITY: There are scattered areas of fibroglandular density. BI-RADS: 2 - Benign. FOLLOW UP: 1 Year Follow-up Recommend return to annual screening mammography.
== END 2024-08-01 09:54 | disposition home or self-care (01) ==
PROVIDERS: PCP Family Medicine; Visit Provider Family Medicine
DX: Z12.31 Encounter for screening mammogram for malignant neoplasm of breast (principal); R92.323 Mammographic fibroglandular density, bilateral breasts; R92.1 Mammographic calcification found on diagnostic imaging of breast; Z13.6 Encounter for screening for cardiovascular disorders; E03.9 Hypothyroidism, unspecified
CPT/HCPCS: 77063; 77067; 80053; 80061; 84443; 85025

== ENCOUNTER → 2024-08-08 09:44 | Outpatient (BNVA) | payer MEDICARE, SELFPAY | PROVIDERS: PCP Family Medicine; Visit Provider Family Medicine | DX: Z13.6 Encounter for screening for cardiovascular disorders (principal); R73.9 Hyperglycemia, unspecified | CPT/HCPCS: 83036; 85025 ==

== ENCOUNTER 2024-11-14 05:00 | Outpatient (RCR) | payer MEDICARE, SELFPAY | END 2024-12-14 23:59 | disposition home or self-care (01) | LOC: SPT 05:00 | PROVIDERS: PCP Family Medicine; Visit Provider Family Medicine | DX: M75.82 Other shoulder lesions, left shoulder (principal); M75.42 Impingement syndrome of left shoulder; M25.612 Stiffness of left shoulder, not elsewhere classified | CPT/HCPCS: 97161 ==

== ENCOUNTER 2024-11-28 13:41 | Outpatient (CLI) | payer MEDICARE, SELFPAY ==
--- NOTE | 2024-11-28 13:49 | XR_ITS ---
WS: [id number] XR shoulder LT min 2V* [id number] REASON FOR EXAM: acute pain of left shoulder FINDINGS: No fracture or focal bone lesion. Mild narrowing of the acromioclavicular joint space with minimal subchondral sclerosis and osteophytosis. Moderate lateral downward slant of the acromial process. The glenohumeral joint space is not well demonstrated. Mild subchondral sclerosis of the glenoid with minimal osteophytosis of the humeral head. CT scan chest abdomen pelvis 09/22/2023 demonstrates minimal narrowing of the left glenohumeral joint. Minimal sclerosis and cystic change in the greater biceps tuberosity. Questionable narrowing of the humeral acromial interval. XR/XR shoulder LT min 2V* [id number] IMPRESSION: No acute abnormality. Minimal osteoarthritis of the acromioclavicular joint. Minimal osteoarthritis of the glenohumeral joint. Possible rotator cuff tendinosis with impingement and narrowing of the humeral acromial interval.
== END 2024-11-28 13:42 | disposition home or self-care (01) ==
PROVIDERS: PCP Family Medicine; Visit Provider Family Medicine
DX: M75.82 Other shoulder lesions, left shoulder (principal); M25.512 Pain in left shoulder; G89.29 Other chronic pain
CPT/HCPCS: 73030

== ENCOUNTER 2024-12-15 05:00 | Outpatient (RCR) | payer MEDICARE, SELFPAY | END 2025-01-14 23:59 | disposition home or self-care (01) | LOC: SPT 05:00 | PROVIDERS: PCP Family Medicine; Visit Provider Family Medicine | DX: M75.82 Other shoulder lesions, left shoulder (principal); M75.42 Impingement syndrome of left shoulder; M25.612 Stiffness of left shoulder, not elsewhere classified | CPT/HCPCS: 97110 ==

== ENCOUNTER 2025-01-15 05:00 | Outpatient (RCR) | payer MEDICARE, SELFPAY | END 2025-01-25 13:34 | disposition home or self-care (01) | LOC: SPT 05:00 | PROVIDERS: PCP Family Medicine; Visit Provider Family Medicine | DX: M75.82 Other shoulder lesions, left shoulder (principal); M75.42 Impingement syndrome of left shoulder; M25.612 Stiffness of left shoulder, not elsewhere classified | CPT/HCPCS: 97110 ==